=== PATIENT | female | born 1980 | race Native Hawaiian/Other Pacific Islander ===

== ENCOUNTER 2020-11-14 22:09 | Emergency (ER) | payer BC ==
[~2020-11-14] VITALS: Ht 152 cm; Wt 72.0 kg
[2020-11-14] MEDS ORDERED: MECLIZINE 25 MG (ANTIVERT) TAB PO ONE (23:00)
--- NOTE | 2020-11-14 23:03 | ED Headache ---
General Chief Complaint: Dizziness/Syncope Stated Complaint: HEADACHE Nursing Triage Note: PT REPORTS TO ED FOR DIZZINESS AND HEADACHE X'S TWO DAYS. DENIES HEAD INJURY. Nursing Sepsis Screen: No Definite Risk Source: patient, family Exam Limitations: language barrier (NATHANIEL HOFF) History of Present Illness Date Seen by Provider: Nov 14, 2020 Time Seen by Provider: 22:56 Initial Comments Hu is a 40 y/o female that presents to the ED with her son with 4 days of dizziness and the feeling of headache. The patient has a language barrier but her son is able to translate. Additionally, she can understand questions and commands in Frisian. Her dizziness is made worse with turning her head and bending over. She has a 5/10 pain associated with the headache. She has associ ated nausea without vomiting. Rest makes it better and moving makes it worse. Denies radiation of head pain. Denies the following: F/C, SOB, cough, chest pain, abdominal pain, weakness or sensory loss, head trauma, GI or symptoms at this time. LMP was in September, she does not remember the exact date and she is not sure if she could be . Denies PMH, PSH, Allergies, Vaccine hx, and medication use at this time. Timing/Duration: 1/2 hour Severity/Quality: mild Location: global Prior Headaches/Recent Trauma: no recent headache/trauma Modifying Factors: improves with movement Associated Symptoms: nausea/vomiting (w/o vomiting) (NATHANIEL HOFF) Allergies and Home Medications Allergies Coded Allergies: No Known Drug Allergies (Unverified , 11/14/20) Home Medications Meclizine HCl 25 Mg Tablet, 25 MG PO Q6H PRN for DIZZINESS Prescribed by: GOYO POLO on 11/14/20 1758 Patient Home Medication List Home Medication List Reviewed: Yes (GOYO APONTE MD) Review of Systems Review of Systems Constitutional: no symptoms reported Eyes: Denies Blurred Vision, Denies Drainage, Denies Photophobia Ears, Nose, Mouth, Throat: no symptoms reported Respiratory: no symptoms reported Cardiovascular: no symptoms reported Gastrointestinal: no symptoms reported Genitourinary: no symptoms reported Musculoskeletal: no symptoms reported Skin: no symptoms reported Psychiatric/Neurological: No Symptoms Reported (NATHANIEL HOFF) Past Rirdbio-Jdqivy-Mlxcox Hx Patient Social History Alcohol Use: Denies Use Smoking Status: Never a Smoker Recent Infectious Disease Expo: No Recent Hopitalizations: No (NATHANIEL HOFF) Seasonal Allergies Seasonal Allergies: No (NATHANIEL HOFF) Physical Exam Vital Signs Vital Signs - First Documented 11/14/20 22:20 Temp 35.4 Pulse 74 Resp 18 B/P (MAP) 127/77 (94) Pulse Ox 99 O2 Delivery Room Air (GOYO APONTE MD) Vital Signs Capillary Refill : Less Than 3 Seconds (NATHANIEL HOFF) Height, Weight, BMI Height: '" Weight: lbs. oz. kg; 31.00 BMI Method: General Appearance: WD/WN, no apparent distress HEENT: PERRL/EOMI Neck: non-tender, full range of motion Cardiovascular: normal peripheral pulses, regular rate, rhythm Respiratory: chest non-tender, normal breath sounds, no respiratory distress, no accessory muscle use Gastrointestinal: normal bowel sounds, non tender, soft, no organomegaly Back: normal inspection, no vertebral tenderness Extremities: normal range of motion, non-tender, no pedal edema (minimal swelling noted over left dorsum of foot. Non-tender. ), no calf tenderness Psychiatric: alert, oriented x 3 Crainal Nerves: normal hearing, normal speech, PERRL Coordination/Gait: normal finger to nose Motor/Sensory: no motor deficit, no sensory deficit Skin: normal color, warm/dry Lymphatic: no adenopathy Comments shaun hallpike was (-) for nystagmus but was (+) for reproduction of symptoms. (NATHANIEL HOFF) Progress/Results/Core Measures Results/Orders My Orders Orders - GOYO APONTE MD Meclizine Tablet (Antivert Tablet) (11/14/20 23:00) Urine Bedside (11/14/20 22:50) (GOYO APONTE MD) Medications Given in ED (GOYO APONTE MD) Vital Signs/I&O 11/14/20 11/14/20 22:20 23:48 Temp 35.4 36.0 Pulse 74 64 Resp 18 17 B/P (MAP) 127/77 (94) 124/77 (94) Pulse Ox 99 99 O2 Delivery Room Air Room Air (GOYO APONTE MD) Blood Pressure Mean: 94 Progress Progress Note : Time: 23:07 Progress Note After talking to patient and family about symptoms and with reproducibility of symptoms with Shaun-hallpike we talked to them about vertigo being the source. We performed vanda maneuver on patient. Will access patient again and collect urine sample. (NATHANIEL HOFF) Progress Note : Progress Note This patient was seen and examined by me personally and interviewed via her son. They speak P[place] and were comfortable with this arrangement. Patient's primary complaint is a vertiginous dizziness. She describes a spinning sensation when bending over getting up or turning her head to the left. This was disrupting her work causing her to leave work. She has had symptoms for couple of days. She had a positive [place]-Hallpike to the left. No nystagmus was observed but symptoms were reproduced. We converted the Shaun-Hallpike and to an Vanda maneuver. This was moderately helpful in reducing her dizziness. She was also given meclizine and rested comfortably after that. Patient describes no recent illnesses. She had no focal deficits on exam. Headache was not a significant complaint at the time of my interview. Urine test was negative. (GOYO APONTE MD) Departure Impression Primary Impression: Vertigo Disposition: 01 HOME, SELF-CARE Condition: Improved Departure-Patient Inst. Decision time for Depature: 23:24 (GOYO APONTE MD) Referrals: NO,LOCAL PHYSICIAN (PCP/Family) Primary Care Physician Patient Instructions: Vertigo (a Type of Dizziness) (DC) Add. Discharge Instructions: If you have recurrence of dizziness, you may repeat the Vanda maneuver several times. Follow the instructions on the handout provided. Start with turning your head to the left. It may take several attempts before successful. For the dizziness you may take meclizine purchased [id number]. Follow package instructions. If symptoms worsen or are not improving, either return to your primary care provider or the emergency room for repeat evaluation. Call with questions or concerns. All discharge instructions reviewed with patient and/or family. Voiced understanding. Scripts Meclizine HCl (Meclizine HCl) 25 Mg Tablet 25 MG PO Q6H PRN for DIZZINESS, #20 TAB Prov: GOYO APONTE MD 11/14/20 Work/School Note: Work Release Form Date Seen in the Emergency Department: Nov 14, 2020 Return to Work: Nov 15, 2020 Other Restrictions Listed Below: May need to stop work and rest if dizzy. Restrictions: May need to leave work if dizziness is persistent making work unsafe. Medical Student Attestation and Attending Note: I have personally interviewed and examined this patient along with Nathaniel Hoff, MS 4. I have reviewed student documentation including history, physical, and assessments. I agree with the documentation except where otherwise noted. Exam: General: Alert, oriented, no acute distress, well developed HEENT: Normocephalic and atraumatic Heart: Regular rate and rhythm without murmur Lungs: Clear to auscultation bilaterally with normal effort Abdomen: Soft, nontender, nondistended, normal bowel sounds Neuropsych: Alert, oriented, no focal deficits, positive Shaun-Hallpike to the left Skin: Warm and dry without rashes (GOYO APONTE MD) NATHANIEL HOFF [facility] Nov 14, 2020 23:03 GOYO APONTE MD Nov 14, 2020 23:28
[2020-11-14] MEDS ORDERED: MECL-149 PO (23:28)
[2020-11-14 23:48] VITALS: BP 124/77
== END 2020-11-14 23:48 | disposition home or self-care (01) ==
LOC: ER 22:12
DX: R42 Dizziness and giddiness (principal)
CPT/HCPCS: 84703; 99283

== ENCOUNTER 2022-01-26 16:13 | Emergency (ER) | payer BC ==
[~2022-01-26] VITALS: Ht 149 cm; Wt 61.0 kg
[~2022-01-26 16:13] MED LIST: MECL-149 PO
[2022-01-26] MEDS ORDERED: NS IV 1000 ML 1,000 ML IV STA (17:04)
--- NOTE | 2022-01-26 17:07 | ED General ---
General Chief Complaint: Cough/Cold/Flu Symptoms Stated Complaint: DIZZY/VOMITING/BODYACHES/LOSS OF TASTE Source of Information: Patient, Family Exam Limitations: Language Barrier (NAMAN TAN) History of Present Illness Date Seen by Provider: January 26, 2022 Time Seen by Provider: 17:06 Initial Comments Patient is a 41-year-old female presents ED with dizziness and vomiting. Dizziness has been intermittently over the past year. She states she was seen here in the ER and was diagnosed with vertigo. She gets these episodes to where she gets dizzy especially with standing or moving. Resolves when she lays down. Had an episode around 4:00 yesterday morning and vomited. Similar episode today around 12. No fever, chest pain, cough, headache, visual loss, unilateral muscle weakness or sensory changes, blurry vision, neck pain, cough, diarrhea. No vomiting today. Patient states she has had some intermittent right sided abdominal pain for a few months with intermittent heart palpitations as well. No known cardiac history, history of COPD or asthma. Has not followed up with her primary care physician since this visit. (NAMAN TAN) Allergies and Home Medications Allergies Coded Allergies: No Known Drug Allergies (Unverified , 11/14/20) Patient Home Medication List Home Medication List Reviewed: Yes (NAAMN TAN) Cephalexin (Cephalexin) 500 Mg Tablet, 500 MG PO BID Prescribed by: FUNMI BECK on 01/26/221836 Meclizine HCl (Meclizine HCl) 25 Mg Tablet, 25 MG PO Q6H PRN for DIZZINESS Prescribed by: GOYO POLO on 11/14/208 Meclizine HCl (Meclizine HCl) 25 Mg Tablet, 25 MG PO Q6H Prescribed by: FUNMI BECK on 01/26/22 183 Review of Systems Review of Systems Constitutional: No chills, No diaphoresis EENTM: No double vision, No vision loss, No mouth pain, No mouth swelling, No throat swelling Respiratory: No cough, No short of breath, No wheezing Gastrointestinal: No abdominal pain, No diarrhea, No nausea, No vomiting Genitourinary: No dysuria, No frequency, No hematuria, No hesitancy Skin: No change in color, No change in hair/nails Psychiatric/Neurological: Denies Headache, Denies Numbness, Denies Paresthesia, Denies Weakness; Other (Dizziness) (NAMAN TAN) All Other Systems Reviewed Negative Unless Noted: Yes (NAMAN TAN) Past Yzshuuz-Pdzdta-Klszlg Hx Seasonal Allergies Seasonal Allergies: No (NAMAN TAN) Physical Exam Vital Signs Vital Signs - First Documented 01/26/22 16:52 Temp 36.4 Pulse 68 Resp 18 B/P (MAP) 126/93 (104) Pulse Ox 97 O2 Delivery Room Air (MADI,FALLON K DO) Vital Signs Capillary Refill : (NAMAN TAN) Height, Weight, BMI Height: '" Weight: lbs. oz. kg; 31.00 BMI Method: General Appearance: No Apparent Distress, WD/WN Eyes: Bilateral Eye Normal Inspection, Bilateral Eye PERRL, Bilateral Eye EOMI, Bilateral Eye Abnormal EOM HEENT: PERRL/EOMI, TMs Normal, Normal ENT Inspection, Pharynx Normal Neck: Full Range of Motion, Normal Inspection, Non Tender Respiratory: Chest Non Tender, Lungs Clear, Normal Breath Sounds, No Accessory Muscle Use Cardiovascular: Regular Rate, Rhythm, No Edema, No Gallop, No JVD Gastrointestinal: Normal Bowel Sounds, No Organomegaly, No Pulsatile Mass Back: Normal Inspection, No CVA Tenderness, No Vertebral Tenderness Extremity: Normal Capillary Refill, Normal Inspection, Normal Range of Motion, Non Tender Skin: Normal Color, Warm/Dry (NAMAN TAN) Progress/Results/Core Measures Suspected Sepsis SIRS Temperature: Pulse: Respiratory Rate: Laboratory Tests 01/26/22 17:20: White Blood Count 8.7 Blood Pressure / Mean: Laboratory Tests 01/26/22 17:20: Creatinine 0.63, Platelet Count 292, Total Bilirubin 0.8 (NAMAN TAN) Results/Orders Lab Results Laboratory Tests Test 01/26/22 16:17 01/26/22 17:13 01/26/22 17:15 01/26/22 17:20 Range/Units Lab Scanned Report Referred Lab Report [id number] Urine Color YELLOW Urine Clarity TURBID Urine pH 6.0 5-9 Urine Specific [place] >=1.030 1.016-1.022 Urine Protein 3+ H NEGATIVE Urine Glucose (UA) TRACE H NEGATIVE Urine Ketones TRACE H NEGATIVE Urine Nitrite NEGATIVE NEGATIVE Urine Bilirubin 1+ H NEGATIVE Urine Urobilinogen 2.0 < = 1.0 MG/DL Urine Leukocyte Esterase 2+ H NEGATIVE Urine RBC (Auto) 3+ H NEGATIVE Urine RBC 5-10 H /HPF Urine WBC >100 H /HPF Urine Squamous Epithelial Cells 2-5 /HPF Urine Crystals NONE /LPF Urine Bacteria FEW H /HPF Urine Casts NONE /LPF Urine Mucus NEGATIVE /LPF Urine Culture Indicated YES Urine Test NEGATIVE NEGATIVE Influenza Type A (RT-PCR) Not Detected Not Detecte Influenza Type B (RT-PCR) Not Detected Not Detecte SARS-CoV-2 RNA (RT-PCR) Not Detected Not Detecte White Blood Count 8.7 4.3-11.0 10^3/uL Red Blood Count 5.06 3.80-5.11 10^6/uL Hemoglobin 14.8 11.5-16.0 g/dL Hematocrit 44 35-52 % Mean Corpuscular Volume 87 80-99 fL Mean Corpuscular Hemoglobin 29 25-34 pg Mean Corpuscular Hemoglobin Concent 34 32-36 g/dL Red Cell Distribution Width 11.8 10.0-14.5 % Platelet Count 292 130-400 10^3/uL Mean Platelet Volume 9.8 9.0-12.2 fL Immature Granulocyte % (Auto) 0 % Neutrophils (%) (Auto) 57 42-75 % Lymphocytes (%) (Auto) 28 12-44 % Monocytes (%) (Auto) 5 0-12 % Eosinophils (%) (Auto) 9 0-10 % Basophils (%) (Auto) 1 0-10 % Neutrophils # (Auto) 5.0 1.8-7.8 10^3/uL Lymphocytes # (Auto) 2.4 1.0-4.0 10^3/uL Monocytes # (Auto) 0.5 0.0-1.0 10^3/uL Eosinophils # (Auto) 0.8 H 0.0-0.3 10^3/uL Basophils # (Auto) 0.1 0.0-0.1 10^3/uL Immature Granulocyte # (Auto) 0.0 0.0-0.1 10^3/uL Sodium Level 139 135-145 MMOL/L Potassium Level 3.1 L 3.6-5.0 MMOL/L Chloride Level 103 98-107 MMOL/L Carbon Dioxide Level 24 21-32 MMOL/L Anion Gap 12 5-14 MMOL/L Blood Urea Nitrogen 10 7-18 MG/DL Creatinine 0.63 0.60-1.30 MG/DL Estimat Glomerular Filtration Rate 114 BUN/Creatinine Ratio 16 Glucose Level 104 70-105 MG/DL Calcium Level 8.9 8.5-10.1 MG/DL Corrected Calcium 8.7 8.5-10.1 MG/DL Magnesium Level 1.9 1.6-2.4 MG/DL Total Bilirubin 0.8 0.1-1.0 MG/DL Aspartate Amino Transf (AST/SGOT) 18 5-34 U/L Alanine Aminotransferase (ALT/SGPT) 19 0-55 U/L Alkaline Phosphatase 86 40-136 U/L Total Protein 8.2 6.4-8.2 GM/DL Albumin 4.2 3.2-4.5 GM/DL (FALLON BARRAZA DO) Micro Results Microbiology 01/26/22 Urine Culture - Final, Complete See Comments (FALLON BARRAZA DO) Vital Signs/I&O 01/26/22 01/26/22 16:52 18:41 Temp 36.4 36.4 Pulse 68 83 Resp 18 18 B/P (MAP) 126/93 (104) 132/91 Pulse Ox 97 97 O2 Delivery Room Air Room Air (FALLON BARRAZA DO) Vital Signs/I&O Capillary Refill : (NAMAN TAN) Departure Communication (PCP) No appreciation of nystagmus. No headache. No meningeal signs. Afebrile. Stable lab work. Was given a liter of fluid and meclizine with improvement of her dizziness. Dizziness has been intermittently over the past year states she gets episodes where she has dizziness with walking. Patient was able to ambulate and walk here in the ED without antalgic gait. Patient neuro exam unremarkable. She does have UTI was given Rocephin. Will discharge with Keflex and meclizine. Patient was requesting a work note for yesterday as well as today. States I will provide a work note for today and for tomorrow. She needs a follow-up outpatient for this continuous dizziness. No neurological red flag findings. Patient was laughing and playing on her phone without any issues. (NAMAN TAN) Impression Primary Impression: UTI (urinary tract infection) Additional Impression: Dizziness Disposition: 01 HOME, SELF-CARE Condition: Stable Departure-Patient Inst. Decision time for Depature: 18:34 (NAMAN TAN) Referrals: [facility],LOCAL PHYSICIAN (PCP) Primary Care Physician Patient Instructions: Urinary Tract Infection, Adult ED Scripts Meclizine HCl (Meclizine HCl) 25 Mg Tablet 25 MG PO Q6H, #12 TAB Prov: NAMAN TAN 01/26/22 Cephalexin (Cephalexin) 500 Mg Tablet 500 MG PO BID for 7 Days, #14 TAB Prov: NAMAN TAN 01/26/22 Work/School Note: Work Release Form Date Seen in the Emergency Department: January 26, 2022 Return to Work: January 28, 2022 ATTENDING PHYSICIAN NOTE: I WAS PHYSICALLY PRESENT ER PHYSICIAN, BUT I WAS NOT INVOLVED IN ANY DECISION MAKING OR ANY CARE OF THIS PATIENT. (FALLON BARRAZA DO) NAMAN TAN January 26, 2022 17:07 FALLON BARRAZA DO January 30, 2022 06:13
[2022-01-26] MEDS ORDERED: MECLIZINE 25 MG (ANTIVERT) TAB PO ONE (17:15)
[2022-01-26 17:31] LABS: CLARITY,URINE TURBID; COLOR,URINE YELLOW; GLUCOSE, URINE (UA) TRACE (NEGATIVE); KETONES,URINE TRACE (NEGATIVE); LEUKOCYTE ESTERASE ,URINE 2+ (NEGATIVE); NITRITE,URINE NEGATIVE (NEGATIVE); PROTEIN,URINE 3+ (NEGATIVE)
[2022-01-26 17:31] LABS: WHITE BLOOD COUNT 8.7 10^3/uL (4.3-11.0)
[2022-01-26 17:32] LABS: BASOPHILS # (AUTO) 0.1 10^3/uL (0.0-0.1); BASOPHILS % (AUTO) 1 % (0-10); EOSINOPHILS # (AUTO) 0.8 10^3/uL (0.0-0.3); EOSINOPHILS % (AUTO) 9 % (0-10); HEMATOCRIT 44 % (35-52); HEMOGLOBIN 14.8 g/dL (11.5-16.0); LYMPHOCYTES # (AUTO) 2.4 10^3/uL (1.0-4.0); LYMPHOCYTES % (AUTO) 28 % (12-44); MEAN CORPUSCULAR HEMOGLOBIN 29 pg (25-34); MEAN CORPUSCULAR HGB CONC 34 g/dL (32-36); MEAN CORPUSCULAR VOLUME 87 fL (80-99); MEAN PLATELET VOLUME 9.8 fL (9.0-12.2); MONOCYTES # (AUTO) 0.5 10^3/uL (0.0-1.0); MONOCYTES % (AUTO) 5 % (0-12); NEUTROPHILS % (AUTO) 57 % (42-75); PLATELET COUNT 292 10^3/uL (130-400)
[2022-01-26 17:39] LABS: ALBUMIN 4.2 GM/DL (3.2-4.5)
[2022-01-26 17:40] LABS: POTASSIUM 3.1 MMOL/L (3.6-5.0)
[2022-01-26 17:40] LABS: BACTERIA,URINE FEW /HPF; BILIRUBIN,URINE 1+ (NEGATIVE); WBC,URINE >100 /HPF
[2022-01-26 17:41] LABS: CALCIUM 8.9 MG/DL (8.5-10.1)
[2022-01-26 17:42] LABS: TOTAL PROTEIN 8.2 GM/DL (6.4-8.2)
[2022-01-26 17:44] LABS: BILIRUBIN,TOTAL 0.8 MG/DL (0.1-1.0)
[2022-01-26 17:46] LABS: CREATININE SERUM 0.63 MG/DL (0.60-1.30)
[2022-01-26 17:48] LABS: MAGNESIUM 1.9 MG/DL (1.6-2.4)
[2022-01-26] MEDS ORDERED: cefTRIAXone 1 GM PRE-MIX 50 ML IV STA (17:53)
[2022-01-26] MEDS ORDERED: CEPH500T PO (18:37)
[2022-01-26] MEDS ORDERED: MECL-149 PO (18:37)
[2022-01-26 18:41] VITALS: BP 132/91
== END 2022-01-26 18:41 | disposition home or self-care (01) ==
LOC: EDUNIT# 16:13 → ER 16:17
DX: R42 Dizziness and giddiness (principal); N39.0 Urinary tract infection, site not specified; Z20.822 Contact with and (suspected) exposure to COVID-19; Z32.02 Encounter for pregnancy test, result negative
CPT/HCPCS: 36415; 80053; 81000; 83735; 84703; 85025; 87088; 87636

== ENCOUNTER 2022-02-02 16:00 | Emergency (ER) | payer BC ==
[~2022-02-02] VITALS: Ht 149 cm; Wt 58.9 kg
[~2022-02-02 16:00] MED LIST changes: +CEPH500T PO
[2022-02-02] MEDS ORDERED: MECLIZINE 25 MG (ANTIVERT) TAB PO STA (16:42)
[2022-02-02] MEDS ORDERED: NS IV 1000 ML 1,000 ML IV STA (16:49)
[2022-02-02 16:53] LABS: BASOPHILS # (AUTO) 0.1 10^3/uL (0.0-0.1); BASOPHILS % (AUTO) 1 % (0-10); EOSINOPHILS # (AUTO) 1.1 10^3/uL (0.0-0.3); EOSINOPHILS % (AUTO) 14 % (0-10); HEMATOCRIT 37 % (35-52); LYMPHOCYTES # (AUTO) 2.1 10^3/uL (1.0-4.0); LYMPHOCYTES % (AUTO) 26 % (12-44); MEAN CORPUSCULAR HEMOGLOBIN 30 pg (25-34); MEAN CORPUSCULAR HGB CONC 35 g/dL (32-36); MEAN CORPUSCULAR VOLUME 86 fL (80-99); MEAN PLATELET VOLUME 9.8 fL (9.0-12.2); MONOCYTES # (AUTO) 0.5 10^3/uL (0.0-1.0); MONOCYTES % (AUTO) 6 % (0-12); NEUTROPHILS # (AUTO) 4.1 10^3/uL (1.8-7.8); NEUTROPHILS % (AUTO) 52 % (42-75); PLATELET COUNT 244 10^3/uL (130-400); WHITE BLOOD COUNT 7.9 10^3/uL (4.3-11.0)
--- NOTE | 2022-02-02 16:55 | ED General ---
General Chief Complaint: Dizziness/Syncope Stated Complaint: DIZZINESS Nursing Triage Note: PT PRESENTS TO ED VIA POV ACCOMPANIED BY SIG OTHER WITH COMPLAITNS OF DIZZINESS AND SOA WITH EXERTION X 1 YEAR. PT WAS SEEN IN ED LAST FRIDAY FOR SIMIALR COMPLAINT, PT REPROTS NO IMPROVEMENT. PT ALSO STATES SHE RECENTLY STARTED COUGHING AND HAVING RUNNY NOSE. Source of Information: Patient Exam Limitations: No Limitations (HANNAH BARTHOLOMEW MD) History of Present Illness Date Seen by Provider: February 02, 2022 Time Seen by Provider: 16:36 Initial Comments Here with report of dizziness gets been intermittent for the last 2 years and maybe little worse over the last 2 weeks. Seen last week for the same and had work-up done including viral panel and labs. She was started on meclizine and cephalexin for probable urinary tract infection. That seems to be normal for her despite low squame count her laboratory evaluation and microbiology. She has apparently done the Landy maneuver and states that its not really helping. She is [place] appears to understand Romansh well but does not speak it well. Significant other is helping with translation and they are comfortable with. Denies nausea or vomiting. Does have sinus congestion and pain now though with this cold that she has been having. States that she does have nasal congestion and mild sore throat with this cough. Shortness of air seems to be related to nasal congestion. Dizziness has been fdc and ongoing. It report did not had any imaging for this thus far. Reports daily dizzy episodes. Timing/Duration: Other (2 years but getting worse over 2 weeks) Severity: Moderate (HANNAH BARTHOLOMEW MD) Allergies and Home Medications Allergies Coded Allergies: No Known Drug Allergies (Unverified , 11/14/20) Patient Home Medication List Home Medication List Reviewed: Yes (NAMAN TAN) Amoxicillin/Potassium Clav (Amox Tr-K Clv 875-125 mg Tab) 875 Mg-125 Mg Tablet, 1 EACH PO BID Prescribed by: FUNMI BECK on 02/02/221925 Cephalexin (Cephalexin) 500 Mg Tablet, 500 MG PO BID Prescribed by: FUNMI BECK on 01/26/221836 Meclizine HCl (Meclizine HCl) 25 Mg Tablet, 25 MG PO Q6H PRN for DIZZINESS Prescribed by: GOYO POLO on 11/14/20 2328 Meclizine HCl (Meclizine HCl) 25 Mg Tablet, 25 MG PO Q6H Prescribed by: FUNMI BECK on 01/26/22 1837 Review of Systems Review of Systems Constitutional: No chills, No diaphoresis, No malaise, No weakness EENTM: nose congestion, other (loss of voice, sinus pressure); No blurred vision, No double vision, No throat pain Respiratory: No dyspnea on exertion Cardiovascular: No chest pain, No edema Gastrointestinal: No abdominal pain, No diarrhea, No nausea, No vomiting Musculoskeletal: No back pain, No joint pain Skin: No change in color Psychiatric/Neurological: Headache, Other (dizziness) (NAMAN TAN) All Other Systems Reviewed Negative Unless Noted: Yes (NAMAN TAN) Past Wqpnaht-Wlhjeq-Diuvsl Hx Patient Social History Tobacco Use?: No Substance use?: No Alcohol Use?: No Pt feels they are or have been: No (HANNAH BARHTOLOMEW MD) Immunizations Up To Date First/Initial COVID19 Vaccinat: 11/2020 Second COVID19 Vaccination [place]eewee: 11/2020 Third COVID19 Vaccination Date: 11/2020 COVID19 Vaccine Grain Shoveler: KAYLIN (HANNAH BARTHOLOMEW MD) Seasonal Allergies Seasonal Allergies: No (HANNAH BARTHOLOMEW MD) Past Medical History Surgery/Hospitalization HX: C SECTION (HANNAH BARTHOLOMEW MD) Physical Exam Vital Signs Vital Signs - First Documented 02/02/22 16:15 Temp 37.4 Pulse 75 Resp 18 Pulse Ox 97 O2 Delivery Room Air (NAMAN TAN) Vital Signs Capillary Refill : Less Than 3 Seconds (HANNAH BARTHOLOMEW MD) Height, Weight, BMI Height: '" Weight: lbs. oz. kg; 26.00 BMI Method: (HANNAH BARTHOLOMEW MD) General Appearance: No Apparent Distress, WD/WN Eyes: Bilateral Eye Normal Inspection, Bilateral Eye PERRL, Bilateral Eye EOMI HEENT: PERRL/EOMI, TMs Normal, Other (Bilateral maxillary and frontal sinus tenderness) Neck: Full Range of Motion, Normal Inspection, Non Tender, Supple Respiratory: Chest Non Tender, Lungs Clear, Normal Breath Sounds, No Accessory Muscle Use, No Respiratory Distress Cardiovascular: Regular Rate, Rhythm, No Edema, No Gallop, No JVD, No Murmur Gastrointestinal: Normal Bowel Sounds, No Organomegaly, No Pulsatile Mass Back: Normal Inspection, No CVA Tenderness Extremity: Normal Capillary Refill, Normal Inspection, Normal Range of Motion, Non Tender (NAMAN TAN) Progress/Results/Core Measures Suspected Sepsis SIRS Temperature: Pulse: 75 Respiratory Rate: 18 Laboratory Tests 02/02/22 16:45: White Blood Count 7.9 Blood Pressure / Mean: Laboratory Tests 02/02/22 16:45: Creatinine 0.59L, Platelet Count 244, Total Bilirubin 0.4 (HANNAH BARTHOLOMEW MD) Results/Orders Lab Results Laboratory Tests Test 02/02/22 16:45 02/02/22 17:03 Range/Units White Blood Count 7.9 4.3-11.0 10^3/uL Red Blood Count 4.37 3.80-5.11 10^6/uL Hemoglobin 13.0 11.5-16.0 g/dL Hematocrit 37 35-52 % Mean Corpuscular Volume 86 80-99 fL Mean Corpuscular Hemoglobin 30 25-34 pg Mean Corpuscular Hemoglobin Concent 35 32-36 g/dL Red Cell Distribution Width 12.0 10.0-14.5 % Platelet Count 244 130-400 10^3/uL Mean Platelet Volume 9.8 9.0-12.2 fL Immature Granulocyte % (Auto) 0 % Neutrophils (%) (Auto) 52 42-75 % Lymphocytes (%) (Auto) 26 12-44 % Monocytes (%) (Auto) 6 0-12 % Eosinophils (%) (Auto) 14 H 0-10 % Basophils (%) (Auto) 1 0-10 % Neutrophils # (Auto) 4.1 1.8-7.8 10^3/uL Lymphocytes # (Auto) 2.1 1.0-4.0 10^3/uL Monocytes # (Auto) 0.5 0.0-1.0 10^3/uL Eosinophils # (Auto) 1.1 H 0.0-0.3 10^3/uL Basophils # (Auto) 0.1 0.0-0.1 10^3/uL Immature Granulocyte # (Auto) 0.0 0.0-0.1 10^3/uL Neutrophils % (Manual) 53 % Lymphocytes % (Manual) 30 % Monocytes % (Manual) 2 % Eosinophils % (Manual) 15 % Blood Morphology Comment NORMAL Sodium Level 140 135-145 MMOL/L Potassium Level 3.4 L 3.6-5.0 MMOL/L Chloride Level 106 98-107 MMOL/L Carbon Dioxide Level 24 21-32 MMOL/L Anion Gap 10 5-14 MMOL/L Blood Urea Nitrogen 9 7-18 MG/DL Creatinine 0.59 L 0.60-1.30 MG/DL Estimat Glomerular Filtration Rate 115 BUN/Creatinine Ratio 15 Glucose Level 103 70-105 MG/DL Calcium Level 8.9 8.5-10.1 MG/DL Corrected Calcium 9.3 8.5-10.1 MG/DL Total Bilirubin 0.4 0.1-1.0 MG/DL Aspartate Amino Transf (AST/SGOT) 15 5-34 U/L Alanine Aminotransferase (ALT/SGPT) 17 0-55 U/L Alkaline Phosphatase 78 40-136 U/L Total Protein 6.5 6.4-8.2 GM/DL Albumin 3.5 3.2-4.5 GM/DL Urine Test NEGATIVE NEGATIVE (NAMAN TAN) My Orders Orders - NAMAN TAN Urine Bedside (02/02/22 18:26) Hcg,Qualitative Urine (02/02/22 18:31) (NAMAN TAN) Medications Given in ED Current Medications Medications Dose Ordered Sig/Shin Route Start Time Stop Time Status Last Admin Dose Admin Dexamethasone Sodium Phosphate 10 mg ONCE ONCE IV 02/02/22 16:45 02/02/22 16:46 DC 02/02/22 17:01 10 MG (NAMAN TAN) Vital Signs/I&O 02/02/22 16:15 Temp 37.4 Pulse 75 Resp 18 B/P (MAP) Pulse Ox 97 O2 Delivery Room Air (NAMAN TAN) Vital Signs/I&O Capillary Refill : Less Than 3 Seconds (HANNAH BARTHOLOMEW MD) Diagnostic Imaging Diagonstic Imaging: CT Plain Films/CT/US/NM/MRI: head Comments [facility] [place], [place] NAME: BIN TAYLOR [facility] REC#: [id number] PT STATUS: REG ER : 1980 PHYSICIAN: HANNAH BARTHOLOMEW MD ADMIT DATE: 02/02/22/ER Signed Date of Exam:02/02/22 CT HEAD WO PROCEDURE: CT head without contrast. TECHNIQUE: Multiple contiguous axial images were obtained through the brain without the use of intravenous contrast. Auto Exposure Controls were utilized during the CT exam to meet ALARA standards for radiation dose reduction. DATE: February 02, 2022. COMPARISON: None. INDICATION: 41-year-old female, sinus pressure and pain. FINDINGS: The ventricles and cerebral spinal fluid spaces are of normal size and configuration for the patient's age. There is no mass effect or midline shift. There is no acute intracranial hemorrhage. There is no abnormal extra-axial fluid collection. There is mucosal thickening of the bilateral maxillary sinuses. There is no air-fluid level in the paranasal sinuses. There is nonspecific partial opacification in the ethmoidal air cells. The mastoid air cells and middle ears are well-aerated. IMPRESSION: 1. No identified acute intracranial abnormality. 2. Nonspecific opacification in the ethmoidal air cells. No findings to specifically suggest acute sinusitis. Dictated by: Dictated on workstation # [id number] Dict: 02/02/221903 Trans: 02/02/221916 [facility] [id number] Interpreted by: JENNIFER GUTHRIE MD Electronically signed by: JENNIFER GUTHRIE MD 02/02/221916 (HANNAH BARTHOLOMEW MD) Departure Communication (PCP) Took over care from Dr. Bartholomew pending CT head and sinus. She has been having sinus pressure concerning for potential sinus infection resulting of her headache dizziness and congestion. She did have some mucosal thickening of the maxillary sinus. Nonspecific opacification in the ethmoid sinus. Due to her current symptoms and complaints patient will be discharged with Augmentin. Recommend stop taking the Keflex. Her urine culture showed normal lalo. Recommend hydration. Jasj-fmx-nchwcmt medication may be used for the sinus pressure. She does have meclizine at home. She has had intermittent dizziness over the past year. She would likely benefit following up with ENT. Provided this and discharge instructions. Return precautions were discussed. No strokelike symptoms. Afebrile. No meningeal signs. CT scan the head otherwise unremarkable. (NAMAN TAN) Impression Primary Impression: Dizziness Additional Impression: Sinusitis Disposition: HOME, SELF-CARE Condition: Stable Departure-Patient Inst. Referrals: RUPALI LORD MD NO,LOCAL PHYSICIAN (PCP) Primary Care Physician Patient Instructions: Dizziness, Adult ED Scripts Amoxicillin/Potassium Clav (Amox Tr-K Clv 875-125 mg Tab) 875 Mg-125 Mg Tablet 1 EACH PO BID for 10 Days, #20 TAB Prov: NAMAN TAN 02/02/22 Work/School Note: Work Release Form Return to Work: February 05, 2022 HANNAH BARTHOLOMEW MD February 02, 2022 16:55 NAMAN TAN February 02, 2022 19:27
[2022-02-02 17:08] LABS: ALBUMIN 3.5 GM/DL (3.2-4.5); POTASSIUM 3.4 MMOL/L (3.6-5.0)
[2022-02-02 17:09] LABS: CALCIUM 8.9 MG/DL (8.5-10.1)
[2022-02-02 17:11] LABS: TOTAL PROTEIN 6.5 GM/DL (6.4-8.2)
[2022-02-02 17:12] LABS: BILIRUBIN,TOTAL 0.4 MG/DL (0.1-1.0)
[2022-02-02 17:14] LABS: CREATININE SERUM 0.59 MG/DL (0.60-1.30)
[2022-02-02 17:27] LABS: EOSINOPHILS % (MANUAL) 15 %; LYMPHOCYTES % (MANUAL) 30 %; MONOCYTES % (MANUAL) 2 %; NEUTROPHILS % (MANUAL) 53 %; RBC MORPH NORMAL
--- NOTE | 2022-02-02 19:12 | Diagnostic Imaging Report ---
PROCEDURE: CT head without contrast. TECHNIQUE: Multiple contiguous axial images were obtained through the brain without the use of intravenous contrast. Auto Exposure Controls were utilized during the CT exam to meet ALARA standards for radiation dose reduction. DATE: February 02, 2022. COMPARISON: None. INDICATION: 41-year-old female, sinus pressure and pain. FINDINGS: The ventricles and cerebral spinal fluid spaces are of normal size and configuration for the patient's age. There is no mass effect or midline shift. There is no acute intracranial hemorrhage. There is no abnormal extra-axial fluid collection. There is mucosal thickening of the bilateral maxillary sinuses. There is no air-fluid level in the paranasal sinuses. There is nonspecific partial opacification in the ethmoidal air cells. The mastoid air cells and middle ears are well-aerated. IMPRESSION: 1. No identified acute intracranial abnormality. 2. Nonspecific opacification in the ethmoidal air cells. No findings to specifically suggest acute sinusitis. Dictated by: Dictated on workstation # [id number]
[2022-02-02] MEDS ORDERED: AMOX1TAB12 PO (19:26)
== END 2022-02-02 19:42 | disposition home or self-care (01) ==
LOC: EDUNIT# 16:00 → ER 16:01
DX: R42 Dizziness and giddiness (principal); J32.9 Chronic sinusitis, unspecified; Z32.02 Encounter for pregnancy test, result negative
CPT/HCPCS: 36415; 70450; 80053; 84703; 85007; 85027

== ENCOUNTER 2022-07-15 17:01 | Emergency (ER) | payer BC ==
[~2022-07-15] VITALS: Ht 152 cm; Wt 61.1 kg
[~2022-07-15 17:01] MED LIST changes: +AMOX1TAB12 PO
[2022-07-15] MEDS ORDERED: LACTATED RINGERS 1,000 ML IV ONE (18:15)
[2022-07-15 18:20] LABS: ALBUMIN 4.1 GM/DL (3.2-4.5)
[2022-07-15 18:21] LABS: POTASSIUM 3.2 MMOL/L (3.6-5.0)
[2022-07-15 18:22] LABS: CALCIUM 8.9 MG/DL (8.5-10.1)
[2022-07-15 18:23] LABS: TOTAL PROTEIN 7.9 GM/DL (6.4-8.2)
[2022-07-15 18:25] LABS: BASOPHILS # (AUTO) 0.1 10^3/uL (0.0-0.1); BASOPHILS % (AUTO) 1 % (0-10); BILIRUBIN,TOTAL 0.8 MG/DL (0.1-1.0); EOSINOPHILS # (AUTO) 0.3 10^3/uL (0.0-0.3); EOSINOPHILS % (AUTO) 3 % (0-10); HEMATOCRIT 44 % (35-52); HEMOGLOBIN 15.2 g/dL (11.5-16.0); LYMPHOCYTES # (AUTO) 1.7 10^3/uL (1.0-4.0); LYMPHOCYTES % (AUTO) 17 % (12-44); MEAN CORPUSCULAR HEMOGLOBIN 29 pg (25-34); MEAN CORPUSCULAR HGB CONC 35 g/dL (32-36); MEAN CORPUSCULAR VOLUME 84 fL (80-99); MEAN PLATELET VOLUME 10.3 fL (9.0-12.2); MONOCYTES # (AUTO) 0.5 10^3/uL (0.0-1.0); MONOCYTES % (AUTO) 5 % (0-12); NEUTROPHILS # (AUTO) 7.2 10^3/uL (1.8-7.8); NEUTROPHILS % (AUTO) 74 % (42-75); PLATELET COUNT 305 10^3/uL (130-400); WHITE BLOOD COUNT 9.8 10^3/uL (4.3-11.0)
[2022-07-15 18:27] LABS: CREATININE SERUM 0.63 MG/DL (0.60-1.30)
[2022-07-15 18:29] LABS: MAGNESIUM 1.8 MG/DL (1.6-2.4)
[2022-07-15 18:31] LABS: BILIRUBIN,URINE NEGATIVE (NEGATIVE); CLARITY,URINE CLOUDY; COLOR,URINE YELLOW; GLUCOSE, URINE (UA) NEGATIVE (NEGATIVE); KETONES,URINE NEGATIVE (NEGATIVE); LEUKOCYTE ESTERASE ,URINE 2+ (NEGATIVE); NITRITE,URINE NEGATIVE (NEGATIVE); PH,URINE 6.5 (5-9); PROTEIN,URINE 3+ (NEGATIVE)
[2022-07-15 18:37] LABS: CREATINE KINASE MB 1.5 NG/ML (<6.6)
[2022-07-15 18:42] LABS: BACTERIA,URINE NEGATIVE /HPF; SQUAMOUS EPITHELIAL CELL,UR 0-2 /HPF; WBC,URINE >100 /HPF
--- NOTE | 2022-07-15 18:45 | ED Neurological Problem ---
General Chief Complaint: Neurological Problems Stated Complaint: HEADACHE Nursing Triage Note: ARRIVED VIA AMB TO ROOM 06. STATES SHE HAS HAD A HEADACHE SINCE YESTERDAY AND HAD X2 SEIZURES THIS AM. Source: old records, spouse ( IS INDUSTRIAL PSYCHOLOGY TEACHER AND GIVES ALL INFORMATION) Exam Limitations: language barrier (PT DOES NOT SPEAK FRENCH) History of Present Illness Date Seen by Provider: Jul 15, 2022 Time Seen by Provider: 18:00 Initial Comments PT ARRIVES VIA POV FROM HOME WITH AND CHILD STATES SHE HAD 2 SEIZURES THIS MORNING--ONE AT 0500 AND ANOTHER ONE AT 0900 BOTH OF THESE OCCURRED WHILE SHE WAS SLEEPING, AND WITNESSED IN THEM HE STATES THAT BOTH OF THEM LASTED A COUPLE OF MINUTES--LESS THAN 5 MINUTES STATES SHE STARTED HAVING SEIZURES IN DECEMBER OF THIS YEAR, AND WAS STARTED ON UNKNOWN SEIZURE MEDICATION HERE IN ER, BUT SHE RAN OUT A COUPLE OF MONTHS AGO HE STATES SHE DID NOT HAVE SEIZURES WHEN SHE WAS TAKING THE MEDICATION, BUT STARTED HAVING THEM AGAIN AFTER SHE RAN OUT OF THE MEDICATION HE STATES SHE HAS 2-3 SEIZURES A WEEK, AND THEY ALWAYS HAPPEN WHEN SHE IS SLEEPING. DESCRIBES POST ICTAL SYMPTOMS OF CONFUSION, NO RECOLLECTION OF EVENT AND HEADACHE AFTER THESE EPISODES HE STATES SHE DOES NOT HAVE A DR, HAS NEVER FOLLOWED UP WITH ANYONE AFTER PRIOR ER VISITS HE STATES SHE HAS BEEN HAVING HEADACHES FOR THE LAST COUPLE OF DAYS, ( ALSO AN ONGOING PROBLEM FOR A COUPLE OF YEARS) --HEADACHE IS IN BOTH TEMPLES AND ABOVE EACH EYEBROW. SHE HAD NAUSEA AND VOMITING YESTERDAY--VOMITED UNKNOWN NUMBER OF TIMES--THIS IS ALSO AN ONGOING PROBLEM FOR A COUPLE OF YEARS, ALONG WITH ONGOING PROBLEM POSITIONAL DIZZINESS FOR A COUPLE OF YEARS. ON REVIEW OF PRIOR VISITS HERE, SHE HAS C/O DIZZINESS AND NAUSEA/VOMITING HER PRESENTING SYMPTOMS--NO MENTION MADE OF SEIZURES, AND PT WAS ONLY PRESCRIBED ANTIBIOTIC FOR UTI AND MECLIZINE. NO VISION CHANGES NO PARESTHESIAS OR MOTOR DEFICITS NO NECK PAIN OR STIFFNESS NO DIZZINESS AT THIS TIME NO FEVER OR COUGH / URI SYMPTOMS PCP: NONE Allergies and Home Medications Allergies Coded Allergies: No Known Drug Allergies (Unverified , 11/14/20) Patient Home Medication List Discontinued Medications Amoxicillin/Potassium Clav (Amox Tr-K Clv 875-125 mg Tab) 875 Mg-125 Mg Tablet, 1 EACH PO BID Discontinued Reason: No Longer Taking Prescribed by: FUNMI BECK on 02/02/221925 Last Action: Discontinued Cephalexin (Cephalexin) 500 Mg Tablet, 500 MG PO BID Discontinued Reason: No Longer Taking Prescribed by: FUNMI BECK on 01/26/221836 Last Action: Discontinued Meclizine HCl (Meclizine HCl) 25 Mg Tablet, 25 MG PO Q6H PRN for DIZZINESS Discontinued Reason: No Longer Taking Prescribed by: GOYO POLO on 11/14/202327 Last Action: Discontinued Meclizine HCl (Meclizine HCl) 25 Mg Tablet, 25 MG PO Q6H Discontinued Reason: No Longer Taking Prescribed by: FUNMI BECK on 01/26/221836 Last Action: Discontinued Review of Systems Review of Systems Constitutional: see HPI, dizziness, malaise Eyes: No Symptoms Reported Ears, Nose, Mouth, Throat: no symptoms reported Respiratory: no symptoms reported Cardiovascular: no symptoms reported Gastrointestinal: see HPI; No abdominal pain, No diarrhea; loss of appetite, nausea, vomiting Genitourinary: no symptoms reported : No LMP: Jun 06, 2022 Musculoskeletal: no symptoms reported Skin: no symptoms reported Psychiatric/Neurological: See HPI, Headache Endocrine: No Symptoms Reported Hematologic/Lymphatic: No Symptoms Reported Past Shjmsmo-Bbucya-[place] Hx Patient Social History Tobacco Use?: No Smoking Status: Never a Smoker Smokeless Tobacco Frequency: Never a User Use of E-Cig and/or Vaping Taz: Never a User Substance use?: No Alcohol Use?: No Immunizations Up To Date First/Initial COVID19 Vaccinat: 11/2020 Second COVID19 Vaccination Peewee: 11/2020 Third COVID19 Vaccination Date: 11/2020 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 ) Headaches /Migraines : No Reproductive Disorders: No Female Reproductive Disorders: Denies Genitourinary: Yes Bladder Infection Gastrointestinal: No Musculoskeletal: No Endocrine: No HEENT: No Cancer: No Psychosocial: No Integumentary: No Blood Disorders: No Physical Exam Vital Signs Vital Signs - First Documented 07/15/22 17:20 Temp 36.9 Pulse 70 Resp 16 B/P (MAP) 121/86 (98) Pulse Ox 98 O2 Delivery Room Air Capillary Refill : Less Than 3 Seconds Height, Weight, BMI Height: '" Weight: lbs. oz. kg; 26.00 BMI Method: General Appearance: WD/WN, no apparent distress, other (LAYING QUIETLY, DOES NOT APPEAR TO BE IN ANY DISCOMFORT OR DISTRESS) HEENT: PERRL/EOMI, normal ENT inspection, TMs normal, pharynx normal; No photophobia Neck: non-tender, full range of motion, supple, normal inspection Respiratory: normal breath sounds, no respiratory distress, no accessory muscle use Cardiovascular: normal peripheral pulses, regular rate, rhythm, no edema, no JVD, no murmur Gastrointestinal: normal bowel sounds, non tender, soft Back: no CVA tenderness Extremities: normal range of motion, non-tender, normal inspection, no pedal edema, no calf tenderness, normal capillary refill Neurologic/Psychiatric: 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 II-XII nml as tested, no motor/sensory deficits, alert, oriented x 3 (PER ), other (FLAT AFFECT) Motor/Sensory: no motor deficit, no sensory deficit Skin: normal color (DARK SKINNED), warm/dry Progress/Results/Core Measures Results/Orders Lab Results Laboratory Tests Test 07/15/22 17:35 07/15/22 18:20 07/15/22 18:22 Range/Units White Blood Count 9.8 4.3-11.0 10^3/uL Red Blood Count 5.22 H 3.80-5.11 10^6/uL Hemoglobin 15.2 11.5-16.0 g/dL Hematocrit 44 35-52 % Mean Corpuscular Volume 84 80-99 fL Mean Corpuscular Hemoglobin 29 25-34 pg Mean Corpuscular Hemoglobin Concent 35 32-36 g/dL Red Cell Distribution Width 12.0 10.0-14.5 % Platelet Count 305 130-400 10^3/uL Mean Platelet Volume 10.3 9.0-12.2 fL Immature Granulocyte % (Auto) 0 % Neutrophils (%) (Auto) 74 42-75 % Lymphocytes (%) (Auto) 17 12-44 % Monocytes (%) (Auto) 5 0-12 % Eosinophils (%) (Auto) 3 0-10 % Basophils (%) (Auto) 1 0-10 % Neutrophils # (Auto) 7.2 1.8-7.8 10^3/uL Lymphocytes # (Auto) 1.7 1.0-4.0 10^3/uL Monocytes # (Auto) 0.5 0.0-1.0 10^3/uL Eosinophils # (Auto) 0.3 0.0-0.3 10^3/uL Basophils # (Auto) 0.1 0.0-0.1 10^3/uL Immature Granulocyte # (Auto) 0.0 0.0-0.1 10^3/uL Erythrocyte Sedimentation Rate 10 0-20 MM/HR Sodium Level 140 135-145 MMOL/L Potassium Level 3.2 L 3.6-5.0 MMOL/L Chloride Level 107 98-107 MMOL/L Carbon Dioxide Level 25 21-32 MMOL/L Anion Gap 8 5-14 MMOL/L Blood Urea Nitrogen 7 7-18 MG/DL Creatinine 0.63 0.60-1.30 MG/DL Estimat Glomerular Filtration Rate 114 BUN/Creatinine Ratio 11 Glucose Level 97 70-105 MG/DL Calcium Level 8.9 8.5-10.1 MG/DL Corrected Calcium 8.8 8.5-10.1 MG/DL Magnesium Level 1.8 1.6-2.4 MG/DL Total Bilirubin 0.8 0.1-1.0 MG/DL Aspartate Amino Transf (AST/SGOT) 19 5-34 U/L Alanine Aminotransferase (ALT/SGPT) 16 0-55 U/L Alkaline Phosphatase 87 40-136 U/L Total Creatine Kinase 165 29-168 U/L Creatine Kinase MB 1.5 <6.6 NG/ML Myoglobin 66.0 10.0-92.0 NG/ML C-Reactive Protein High Sensitivity 0.21 0.00-0.50 MG/DL Total Protein 7.9 6.4-8.2 GM/DL Albumin 4.1 3.2-4.5 GM/DL TSH Jay Testing 1.01 0.35-4.94 UIU/ML Serum Test, Qualitative NEGATIVE NEGATIVE Influenza Type A (RT-PCR) Not Detected Not Detecte Influenza Type B (RT-PCR) Not Detected Not Detecte SARS-CoV-2 RNA (RT-PCR) Not Detected Not Detecte Urine Color YELLOW Urine Clarity CLOUDY Urine pH 6.5 5-9 Urine Specific Marlin 1.025 H 1.016-1.022 Urine Protein 3+ H NEGATIVE Urine Glucose (UA) NEGATIVE NEGATIVE Urine Ketones NEGATIVE NEGATIVE Urine Nitrite NEGATIVE NEGATIVE Urine Bilirubin NEGATIVE NEGATIVE Urine Urobilinogen 1.0 < = 1.0 MG/DL Urine Leukocyte Esterase 2+ H NEGATIVE Urine RBC (Auto) 3+ H NEGATIVE Urine RBC NONE /HPF Urine WBC >100 H /HPF Urine Squamous Epithelial Cells 0-2 /HPF Urine Renal Epithelial Cells NONE /HPF Urine Crystals NONE /LPF Urine Bacteria NEGATIVE /HPF Urine Casts NONE /LPF Urine Mucus LARGE H /LPF Urine Culture Indicated YES My Orders Orders - FALLON BARRAZA DO Ed Iv/Invasive Line Start (07/15/22 18:09) Monitor-Rhythm Ecg Trace Only (07/15/22 18:09) Ct Head Wo-R/O Stroke (07/15/22 18:09) Cbc With Automated Diff (07/15/22 18:09) Comprehensive Metabolic Panel (07/15/22 18:09) Creatine Kinase (07/15/22 18:09) Creatine Kinase Mb (07/15/22 18:09) Hs C Reactive Protein (07/15/22 18:09) Hcg,Qualitative Serum (07/15/22 18:09) Magnesium (07/15/22 18:09) Thyroid Analyzer (07/15/22 18:09) Ua Culture If Indicated (07/15/22 18:09) Erythrocyte Sedimentation Rate (07/15/22 18:09) Myoglobin Serum (07/15/22 18:09) Ed Iv/Invasive Line Start (07/15/22 18:09) Lactated Ringers (Lr 1000 Ml Iv Solution (07/15/22 18:15) Chest 1 View, Ap/Pa Only (07/15/22 18:09) Covid 19 Inhouse Test (07/15/22 18:09) Influenza A And B By Pcr (07/15/22 18:09) Isolation Central Supply Req (07/15/22 18:09) Urine Culture (07/15/22 18:22) Ceftriaxone 1 Gm Pre-Mix (Rocephin 1 Gm (07/15/22 19:00) Tick Panel With Lyme Eia (07/15/22 18:48) Ct Diandra Chest/Noang Abd-Pelv W (07/15/22 20:06) Iohexol Injection (Omnipaque 350 Mg/Ml 1 (07/15/22 20:30) Received Contrast (Hold Metformin- Contr (07/15/22 20:30) Ns (Ivpb) (Sodium Chloride 0.9% Ivpb Bag (07/15/22 20:30) Alcohol (07/15/22 22:00) Drug Screen Stat (Urine) (07/15/22 22:00) Ketorolac Injection (Toradol Injection) (07/15/22 22:15) Medications Given in ED Current Medications Medications Dose Ordered Sig/Shin Route Start Time Stop Time Status Last Admin Dose Admin Ceftriaxone Sodium/Dextrose 50 ml @ 100 mls/hr ONCE ONCE IV 07/15/22 19:00 07/15/22 19:29 DC 07/15/22 19:41 100 MLS/HR Iohexol 100 ml ONCE ONCE IV 07/15/22 20:30 07/15/22 20:31 DC 07/15/22 20:36 100 ML Ketorolac Tromethamine 30 mg ONCE ONCE IVP 07/15/22 22:15 07/15/22 22:16 07/15/22 22:09 30 MG Lactated Ringer's 1,000 ml @ 0 mls/hr Q0M ONCE IV 07/15/22 18:15 07/15/22 18:16 DC 07/15/22 18:19 1,000 MLS/HR Vital Signs/I&O 07/15/22 17:20 Temp 36.9 Pulse 70 Resp 16 B/P (MAP) 121/86 (98) Pulse Ox 98 O2 Delivery Room Air Blood Pressure Mean: 98 Progress Progress Note : Progress Note GIVEN: -IV FLUIDS -ROCEPHIN FOR UTI Diagnostic Imaging Comments CXR--PER RADIOLOGIST REPORT AT 1939 INDICATION: Weakness Portable AP view of the chest is obtained. There is no previous study available at this time for comparison. Heart size is at the upper limits of normal. Pulmonary vascularity and there is no evidence of overt pulmonary edema. Mild increased density is noted in the right perihilar region possibly related to mild edema or pneumonitis. No consolidation, pneumothorax or pleural fluid is seen. IMPRESSION: Mild right perihilar density may reflect mild edema or pneumonitis. In addition, the heart size is at the upper limits of normal without other acute abnormality. CT HEAD--PER RADIOLOGIST REPORT AT 2004 CT HEAD: CT images of the head were obtained. FINDINGS: Ventricles and sulci are within normal limits for size. There is no intracranial hemorrhage identified. There is no abnormal mass effect or shift of midline structures. IMPRESSION: Unremarkable CT of the head. Reviewed: Reviewed by Me Departure Impression Primary Impression: Seizures Additional Impressions: UTI (urinary tract infection) Chronic headaches CHRONIC NAUSEA/VOMITING Disposition: 01 HOME, SELF-CARE Condition: Stable Departure-Patient Inst. Decision time for Depature: 22:13 Referrals: [facility] [place] Patient Instructions: Headache, Adult ED, Seizures, Adult ED, Urinary Tract Infection, Adult (DC) Add. Discharge Instructions: HOME, REST LOTS OF CLEAR LIQUIDS--WATER, BROTH, JELLO, GATORADE, CLEAR JUICE BRATS DIET--BANANAS, RICE, APPLESAUCE, TOAST, SALTINES. NO DRIVING AT ANY TIME YOU MAY TAKE TYLENOL AND MOTRIN NEEDED FOR YOUR PAIN GO TO THE PHARMACY FIRST THING IN THE MORNING AND SUPERVISOR ELECTRONIC COILS YOUR PRESCRIPTIONS AND START TAKING THEM TOMORROW MORNING. FOLLOW UP WITH [facility] FOR FURTHER EVALUATION OF SEIZURES---CALL IN THE MORNING TO MAKE AN APPOINTMENT FOLLOW UP WITH [facility] TO ESTABLISH PRIMARY CARE, FOR FURTHER EVAULATION OF YOUR PROBLEMS, AND TO HAVE YOUR URINE RECHECKED--CALL IN THE MORNING TO MAKE AN APPOINTMENT CALL THE HOSPITAL SCHEDULING DEPARTMENT AT IN THE MORNING TO SCHEDULE AN OUTPATIENT MRI OF YOUR BRAIN. RETURN TO ER IF SYMPTOMS WORSEN All discharge instructions reviewed with patient and/or family. Voiced understanding. Scripts Nitrofurantoin Monohyd/M-Cryst (Macrobid 100 mg Capsule) 100 Mg Capsule 1 TAB PO BID, #20 CAP Prov: FALLON BARRAZA DO 07/15/22 Ondansetron (Ondansetron Odt) 8 Mg Tab.rapdis 8 MG SL Q4H PRN for NAUSEA/VOMITING, #14 TAB Prov: FALLON BARRAZA DO 07/15/22 Levetiracetam (Keppra) 500 Mg Tablet 500 MG PO BID, #60 TAB Prov: MADIFALLON K DO 07/15/22 FALLON BARRAZA DO Jul 15, 2022 18:45
[2022-07-15 18:47] LABS: ERYTHROCYTE SEDIMENTATION RATE 10 MM/HR (0-20)
[2022-07-15 18:50] LABS: TSH (THYROID ANALYZER) 1.01 UIU/ML (0.35-4.94)
[2022-07-15] MEDS ORDERED: cefTRIAXone 1 GM PRE-MIX 50 ML IV ONE (19:00)
--- NOTE | 2022-07-15 19:36 | Diagnostic Imaging Report ---
INDICATION: Weakness Portable AP view of the chest is obtained. There is no previous study available at this time for comparison. Heart size is at the upper limits of normal. Pulmonary vascularity and there is no evidence of overt pulmonary edema. Mild increased density is noted in the right perihilar region possibly related to mild edema or pneumonitis. No consolidation, pneumothorax or pleural fluid is seen. IMPRESSION: Mild right perihilar density may reflect mild edema or pneumonitis. In addition, the heart size is at the upper limits of normal without other acute abnormality. Dictated by: Dictated on workstation # [id number]
--- NOTE | 2022-07-15 19:46 | Diagnostic Imaging Report ---
PROCEDURE: CT head wo r/o stroke. TECHNIQUE: Multiple contiguous axial images were obtained through the brain without the use of intravenous contrast. Auto Exposure Controls were utilized during the CT exam to meet ALARA standards for radiation dose reduction. INDICATION: Neurologic deficit with headache and seizure CT HEAD: CT images of the head were obtained. FINDINGS: Ventricles and sulci are within normal limits for size. There is no intracranial hemorrhage identified. There is no abnormal mass effect or shift of midline structures. IMPRESSION: Unremarkable CT of the head. Dictated by: Dictated on workstation # [id number]
[2022-07-15] MEDS ORDERED: NS 100 ML (IVPB) BAG IV ONE (20:30)
[2022-07-15] MEDS ORDERED: IOHEXOL 350 MG/ML 100 ML (OMNIPAQUE 350) VIAL IV ONE (20:30)
[2022-07-15] MEDS ORDERED: HOLD METFORMIN - RECEIVED CONTRAST 20 ML VIAL IV SCH (20:30)
--- NOTE | 2022-07-15 21:09 | Diagnostic Imaging Report ---
INDICATION: Chest and abdominal pain with urinary tract infection. CTA chest, abdomen and pelvis Thin axial sections through the chest, abdomen and pelvis are obtained following intravenous contrast bolus. Multiplanar MIP images were reconstructed and reviewed. All CT scans use one or more of the following dose optimizing techniques: automated exposure control, MA and/or KvP adjustment based on patient size and exam type or iterative reconstruction. There is good opacification of the pulmonary arteries without intraluminal filling defect. There is no evidence of acute thoracic aortic abnormality. There is dilatation of left lower lobe pulmonary vein. No definite proximal stenosis is appreciated. The lungs appear clear without evidence of consolidation or mass. There is no significant pleural or pericardial fluid. There is no focal hepatic, gallbladder, pancreatic, adrenal gland or splenic abnormality. Kidneys are also unremarkable without evidence of free fluid in the abdomen or pelvis. No pathologically enlarged adenopathy is identified. There is no evidence of appendiceal inflammation. There is fluid within the endometrial canal possibly related to hormonal influence or menstrual cycle. Collection of fluid is also present in what appears to be the vagina, possibly within the vaginal wall, measuring 2.5 cm in diameter. IMPRESSION: No definite acute abnormality seen within the abdomen or pelvis although there is an approximately 2.5 cm smooth-walled fluid collection at the level of the vagina. There may also be endometrial fluid possibly related to outflow obstruction and clinical correlation is recommended. Pelvic ultrasonography may be of value. Otherwise, no acute abnormality is seen within the chest or abdomen. Dictated by: Dictated on workstation # [id number]
[2022-07-15] MEDS ORDERED: KETOROLAC 30 MG/ML VIAL IVP ONE (22:15)
[2022-07-15] MEDS ORDERED: ONDA8TAB13 SL (22:21)
[2022-07-15] MEDS ORDERED: NITR-65 PO (22:21)
[2022-07-15] MEDS ORDERED: LEVE500T99 PO (22:21)
[2022-07-15 22:41] LABS: AMPHETAMINE SCREEN, URINE NEGATIVE (NEGATIVE); BARBITURATE SCREEN URINE NEGATIVE (NEGATIVE); BENZODIAZEPINES SCREEN URINE NEGATIVE (NEGATIVE); CANNABINOID SCREEN, URINE NEGATIVE (NEGATIVE); COCAINE SCREEN URINE NEGATIVE (NEGATIVE); METHADONE STAT NEGATIVE (NEGATIVE); OPIATE SCREEN URINE NEGATIVE (NEGATIVE); OXYCODONE STAT NEGATIVE (NEGATIVE); PROPOXYPHENE STAT NEGATIVE (NEGATIVE); TRICYCLIC ANTIDEPRESSANTS SCRE NEGATIVE (NEGATIVE)
[2022-07-15 22:45] VITALS: BP 111/79
== END 2022-07-15 22:45 | disposition home or self-care (01) ==
LOC: EDUNIT# 17:01 → ER 17:03
DX: N39.0 Urinary tract infection, site not specified (principal); R51.9 Headache, unspecified; G89.29 Other chronic pain; R11.2 Nausea with vomiting, unspecified; R56.9 Unspecified convulsions; Z86.69 Personal history of other diseases of the nervous system and sense organs; Z91.14 Patient's other noncompliance with medication regimen; Z20.822 Contact with and (suspected) exposure to COVID-19
CPT/HCPCS: 70450; 71045; 71275; 74177; 80053; 80306; 81000; 82550; 82553; 83735; 83874; 84443; 84703; 85025; 85652; 86141; 86618; 86666 ×2; 86668; 86757 ×2; 87088; 87636; 93041; 99284; G0480; 36415; 80320

== ENCOUNTER → 2023-03-20 | Emergency (ER) | payer BC ==
[~2023-03-20] VITALS: Ht 157 cm; Wt 63.5 kg
[~2023-03-20] MED LIST changes: +KCL 20 MEQ TAB (K-DUR) PO ONE; +LEVE500T99 PO; +NITR-65 PO; +ONDA8TAB13 SL; +cefTRIAXone IV/IM 1,000 MG in NS (IVPB) 50 ML IV ONE
[2023-03-20 14:52] VITALS: BP 97/63
[2023-03-20 15:00] LABS: BASOPHILS # (AUTO) 0.1 10^3/uL (0.0-0.1); BASOPHILS % (AUTO) 1 % (0-10); EOSINOPHILS # (AUTO) 0.1 10^3/uL (0.0-0.3); EOSINOPHILS % (AUTO) 1 % (0-10); HEMATOCRIT 40 % (35-52); HEMOGLOBIN 13.6 g/dL (11.5-16.0); LYMPHOCYTES # (AUTO) 1.6 10^3/uL (1.0-4.0); LYMPHOCYTES % (AUTO) 21 % (12-44); MEAN CORPUSCULAR HEMOGLOBIN 29 pg (25-34); MEAN CORPUSCULAR HGB CONC 34 g/dL (32-36); MEAN CORPUSCULAR VOLUME 85 fL (80-99); MEAN PLATELET VOLUME 9.5 fL (9.0-12.2); MONOCYTES # (AUTO) 0.5 10^3/uL (0.0-1.0); MONOCYTES % (AUTO) 6 % (0-12); NEUTROPHILS # (AUTO) 5.3 10^3/uL (1.8-7.8); NEUTROPHILS % (AUTO) 70 % (42-75); PLATELET COUNT 318 10^3/uL (130-400); WHITE BLOOD COUNT 7.5 10^3/uL (4.3-11.0)
[2023-03-20 15:08] LABS: ALBUMIN 3.8 GM/DL (3.2-4.5); POTASSIUM 3.2 MMOL/L (3.6-5.0)
[2023-03-20 15:09] LABS: CALCIUM 8.5 MG/DL (8.5-10.1)
[2023-03-20 15:12] LABS: BILIRUBIN,TOTAL 0.6 MG/DL (0.1-1.0)
--- NOTE | 2023-03-20 15:12 | ED Neurological Problem ---
General Chief Complaint: Neurological Problems Stated Complaint: SEIZURE Nursing Triage Note: PATIENT IS BROUGHT TO ED VIA CC. EMS ON BLS. PER SPOUSE PATIENT HAD TWO SEIZURES THIS MORNING. LAST ONE LASTED ABOUT A MINUTE AROUND 1405. PATIENT HAS BEEN OFF HER MEDICATION FOR A YEAR DUE TO RUNNING OUT. Source: patient Exam Limitations: language barrier (YANY JONES APRN) History of Present Illness Date Seen by Provider: Mar 20, 2023 Time Seen by Provider: 14:52 Initial Comments 42-year-old female presents to the ER via EMS for reports of seizure. Patient speaks minimal Georgian, most of history obtained from EMS and . Seizures were witnessed by . He states that her whole body tightens up, her eyes rolled back in her head, and she blows out of her mouth. He states that she does not respond to him during the seizure. He states they last about a minute. He reports that she had 1 yesterday morning around 5 AM, and then 3 today. According to him, she first started having seizures about 1 year ago, he states that she was seen here and prescribed a medication for seizures. She ran out of the medication and did not follow-up. Patient's states that she has not had a seizure since running out of the medication. He denies any recent illness. States that patient is complaining of left shoulder and arm pain from her seizure. She is currently on her menstrual cycle. EMS did not witness the seizure, but they stated that she was postictal when they arrived. According to ED notes. Patient was seen in June 2022 for a seizure and started on Keppra at that time. She was supposed to follow-up with epilepsy clinic but did not. She was also supposed to follow-up with Dr. Burr to get established for primary care. Patient did not do this as well. No other previous ED notes indicate seizure activity. (YANY JONES APRN) Allergies and Home Medications Allergies Coded Allergies: No Known Drug Allergies (Unverified , 11/14/20) Patient Home Medication List Home Medication List Reviewed: Yes (YANY JONES APRN) Levetiracetam (Keppra) 500 Mg Tablet, 500 MG PO BID Prescribed by: FALLON BARRAZA on 07/15/221 Levetiracetam (Keppra) 500 Mg Tablet, 500 MG PO BID Prescribed by: Yany Jones on 03/20/23 1636 Nitrofurantoin Monohyd/M-Cryst (Macrobid 100 mg Capsule) 100 Mg Capsule, 1 TAB PO BID Prescribed by: FALLON BARRAZA on 07/15/222220 Nitrofurantoin Monohyd/M-Cryst (Macrobid 100 mg Capsule) 100 Mg Capsule, 1 TAB PO BID Prescribed by: Yany Jones on 03/20/23 1637 Ondansetron (Ondansetron Odt) 8 Mg Tab.rapdis, 8 MG SL Q4H PRN for NAUSEA/VOMITING Prescribed by: FALLON BARRAZA on 07/15/222220 Review of Systems Review of Systems Constitutional: see HPI (YANY JONES APRN) Past Jdqrsrl-Zcpmio-Pzdplu Hx Patient Social History Tobacco Use?: No Substance use?: No Alcohol Use?: No Pt feels they are or have been: Unable to obtain (YANY JONES APRN) Immunizations Up To Date First/Initial COVID19 Vaccinat: 11/2020 Second COVID19 Vaccination [place]: 11/2020 Third COVID19 Vaccination Date: 11/2020 (YANY JONES APRN) Seasonal Allergies Seasonal Allergies: No (YANY JONES APRN) Past Medical History Surgery/Hospitalization HX: MED. HX-EPILEPSY SURG. HX-C SECTION Surgeries: Yes Section Respiratory: No Cardiac: No Neurological: Yes (DIZZINESS; SEIZURES REPORTED BY , NO PRIOR MED DX. ) Headaches /Migraines Last Menstrual Period: Mar 20, 2023 Reproductive Disorders: No Female Reproductive Disorders: Denies Genitourinary: Yes Bladder Infection Gastrointestinal: No Musculoskeletal: No Endocrine: No HEENT: No Cancer: No Psychosocial: No Integumentary: No Blood Disorders: No (YANY JONES APRN) Physical Exam Vital Signs Vital Signs - First Documented 03/20/23 14:52 Temp 37.8 Pulse 67 Resp 18 B/P (MAP) 97/63 (74) Pulse Ox 94 O2 Delivery Room Air (GOYO APONTE MD) Vital Signs Capillary Refill : (YANY JONES APRN) Height, Weight, BMI Height: '" Weight: lbs. oz. kg; 25.00 BMI Method: General Appearance: WD/WN, no apparent distress HEENT: PERRL/EOMI, TMs normal Neck: supple, normal inspection Respiratory: lungs clear, normal breath sounds, no respiratory distress, no accessory muscle use Cardiovascular: regular rate, rhythm Gastrointestinal: normal bowel sounds Extremities: normal inspection, other (Limited range of motion due to pain of left shoulder, tenderness to palpation of the left shoulder. 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, alert, normal mood/affect, oriented x 3 Crainal Nerves: normal hearing, PERRL Skin: normal color, warm/dry (YANY JONES APRN) Progress/Results/Core Measures Results/Orders Lab Results Laboratory Tests Test 03/20/23 14:55 03/20/23 15:08 03/20/23 15:12 03/20/23 15:34 Range/Units White Blood Count 7.5 4.3-11.0 10^3/uL Red Blood Count 4.71 3.80-5.11 10^6/uL Hemoglobin 13.6 11.5-16.0 g/dL Hematocrit 40 35-52 % Mean Corpuscular Volume 85 80-99 fL Mean Corpuscular Hemoglobin 29 25-34 pg Mean Corpuscular Hemoglobin Concent 34 32-36 g/dL Red Cell Distribution Width 12.1 10.0-14.5 % Platelet Count 318 130-400 10^3/uL Mean Platelet Volume 9.5 9.0-12.2 fL Immature Granulocyte % (Auto) 0 % Neutrophils (%) (Auto) 70 42-75 % Lymphocytes (%) (Auto) 21 12-44 % Monocytes (%) (Auto) 6 0-12 % Eosinophils (%) (Auto) 1 0-10 % Basophils (%) (Auto) 1 0-10 % Neutrophils # (Auto) 5.3 1.8-7.8 10^3/uL Lymphocytes # (Auto) 1.6 1.0-4.0 10^3/uL Monocytes # (Auto) 0.5 0.0-1.0 10^3/uL Eosinophils # (Auto) 0.1 0.0-0.3 10^3/uL Basophils # (Auto) 0.1 0.0-0.1 10^3/uL Immature Granulocyte # (Auto) 0.0 0.0-0.1 10^3/uL Sodium Level 138 135-145 MMOL/L Potassium Level 3.2 L 3.6-5.0 MMOL/L Chloride Level 109 H 98-107 MMOL/L Carbon Dioxide Level 18 L 21-32 MMOL/L Anion Gap 11 5-14 MMOL/L Blood Urea Nitrogen 10 7-18 MG/DL Creatinine 0.71 0.60-1.30 MG/DL Estimat Glomerular Filtration Rate 108 BUN/Creatinine Ratio 14 Glucose Level 108 H 70-105 MG/DL Calcium Level 8.5 8.5-10.1 MG/DL Corrected Calcium 8.7 8.5-10.1 MG/DL Total Bilirubin 0.6 0.1-1.0 MG/DL Aspartate Amino Transf (AST/SGOT) 19 5-34 U/L Alanine Aminotransferase (ALT/SGPT) 25 0-55 U/L Alkaline Phosphatase 89 40-136 U/L Total Protein 7.0 6.4-8.2 GM/DL Albumin 3.8 3.2-4.5 GM/DL Glucometer 112 H 70-110 MG/DL Urine Color RED H Urine Clarity CLOUDY Urine pH 5.0 5-9 Urine Specific [place] >=1.030 1.016-1.022 Urine Protein 3+ H NEGATIVE Urine Glucose (UA) NEGATIVE NEGATIVE Urine Ketones TRACE H NEGATIVE Urine Nitrite POSITIVE H NEGATIVE Urine Bilirubin NEGATIVE NEGATIVE Urine Urobilinogen 1.0 < = 1.0 MG/DL Urine Leukocyte Esterase 2+ H NEGATIVE Urine RBC (Auto) 3+ H NEGATIVE Urine RBC TNTC H /HPF Urine WBC 50-100 H /HPF Urine Squamous Epithelial Cells 5-10 /HPF Urine Crystals NONE /LPF Urine Bacteria FEW H /HPF Urine Casts NONE /LPF Urine Mucus MODERATE H /LPF Urine Culture Indicated YES Urine Opiates Screen NEGATIVE NEGATIVE Urine Oxycodone Screen NEGATIVE NEGATIVE Urine Methadone Screen NEGATIVE NEGATIVE Urine Propoxyphene Screen NEGATIVE NEGATIVE Urine Barbiturates Screen NEGATIVE NEGATIVE Ur Tricyclic Antidepressants Screen NEGATIVE NEGATIVE Urine Phencyclidine Screen NEGATIVE NEGATIVE Urine Amphetamines Screen NEGATIVE NEGATIVE Urine Methamphetamines Screen NEGATIVE NEGATIVE Urine Benzodiazepines Screen NEGATIVE NEGATIVE Urine Cocaine Screen NEGATIVE NEGATIVE Urine Cannabinoids Screen NEGATIVE NEGATIVE Magnesium Level 1.8 1.6-2.4 MG/DL Test 03/20/23 15:48 Range/Units SARS-CoV-2 RNA (RT-PCR) Not Detected Not Detecte (GOYO AOPNTE MD) Medications Given in ED Current Medications Medications Dose Ordered Sig/Shin Route Start Time Stop Time Status Last Admin Dose Admin Ceftriaxone Sodium 1000 mg/ Sodium Chloride 50 ml @ 100 mls/hr ONCE ONCE IV 03/20/23 16:15 03/20/23 16:44 DC 03/20/23 16:28 100 MLS/HR Levetiracetam 500 mg ONCE ONCE PO 03/20/23 15:30 03/20/23 15:31 DC 03/20/23 16:16 500 MG Potassium Chloride 40 meq ONCE ONCE PO 03/20/23 15:30 03/20/23 15:31 DC 03/20/23 16:16 40 MEQ (GOYO APONTE MD) Vital Signs/I&O 03/20/23 14:52 Temp 37.8 Pulse 67 Resp 18 B/P (MAP) 97/63 (74) Pulse Ox 94 O2 Delivery Room Air (GOYO APONTE MD) Blood Pressure Mean: 74 FSBG Bedside Testing Finger Stick Blood Glucose: 112 Blood Glucose Action Taken: PROVIDER NOTIFIED. (YANY JONES APRN) Progress Progress Note : Progress Note Patient seen and evaluated, resting comfortably in bed, no acute distress. She is no longer postictal at this time. Neuro exam within normal limits. Work-up initiated including CBC, CMP, UA, urine , EKG, Accu-Chek, CT head, x- ray left shoulder. 1614 labs and imaging reviewed. CT head and shoulder x-ray showed no acute abnormality. CBC grossly normal. CMP shows decreased potassium 3.2, slightly elevated chloride 109, slightly decreased CO2 18. Magnesium normal. Oral potassium ordered. Urinalysis shows 3+ protein, trace ketones, positive nitrates, 2+ leukocytes, 3+ RBCs, few bacteria. Urine drug screen negative. Urine negative. COVID-negative. Rocephin ordered for UTI. Will discharge with prescription for antibiotic for UTI as well as Keppra. Results discussed with patient and . I instructed them that they need to follow- up with neurology and primary care. I provided the phone numbers for [facility] in [place] for neurology. I also provided [facility] to follow-up for primary care provider. I informed them that patient will need to get further refills from the neurologist or primary care provider and that she will likely need to take these daily from here on out. Instructed her not to drive. Discharge instructions and return precautions provided. (YANY JONES APRN) Initial ECG Impression Date: Mar 20, 2023 Initial ECG Impression Time: 15:08 Initial ECG Rate: 66 Initial ECG Rhythm: Normal Sinus Initial ECG Intervals: Normal Initial ECG Impression: Nonspecific Changes Initial ECG Comparisson: No Previous ECG Available Comment Insignificant Q waves noted in 2, 3, aVF V4, V5, V6. No ST elevation or T wave inversion. (YANY JONES APRN) Diagnostic Imaging Diagonstic Imaging: CT Plain Films/CT/US/NM/MRI: head Comments [facility] [place] [place] NAME: [employer] REC#: [id number] PT STATUS: REG ER : 1980 PHYSICIAN: YANY JONES APRN ADMIT DATE: 03/20/23/ER Signed Date of Exam:03/20/23 CT HEAD WO PROCEDURE: CT head without contrast. TECHNIQUE: Multiple contiguous axial images were obtained through the brain without the use of intravenous contrast. Auto Exposure Controls were utilized during the CT exam to meet ALARA standards for radiation dose reduction. INDICATION: Seizure. COMPARISON: 07/15/2022. CT HEAD: CT images of the head were obtained. FINDINGS: Ventricles and sulci are within normal limits for size. There is no intracranial hemorrhage identified. There is no abnormal mass effect or shift of midline structures. IMPRESSION: Unremarkable CT of the head. Dictated by: Dictated on workstation # [id number] Dict: 03/20/23 1539 Trans: 03/20/239 AS6 [id number] Interpreted by: DARELL BARRIGA MD Electronically signed by: DARELL BARRIGA MD 03/20/23 1719 Diagonstic Imaging: Xray Plain Films/CT/US/NM/MRI: other (Shoulder) Comments [facility] [place] NAME: [employer] REC#: [id number] PT STATUS: REG ER : 1980 PHYSICIAN: YANY JONES APRN ADMIT DATE: 03/20/23/ER Signed Date of Exam:03/20/23 SHOULDER, LEFT, 3 VIEWS INDICATION: Seizure with left shoulder pain. EXAMINATION: AP, oblique and transscapular views of the left shoulder were obtained. FINDINGS: No acute fracture or dislocation is identified. No abnormal lytic or sclerotic focus is seen, and there is no radiopaque foreign body. IMPRESSION: No acute abnormality. Dictated by: Dictated on workstation # [id number] Dict: 03/20/23 1549 Trans: 03/20/231718 [facility] [id number] Interpreted by: DARELL BARRIGA MD Electronically signed by: DARELL BARRIGA MD 03/20/231718 (YANY JONES APRN) Departure Impression Primary Impression: Seizures Additional Impressions: UTI (urinary tract infection) Qualified Codes: N30.01 - Acute cystitis with hematuria Hypokalemia Disposition: HOME, SELF-CARE Condition: Stable Departure-Patient Inst. Decision time for Depature: 16:31 (YANY JONES APRN) Referrals: [facility] Patient Instructions: Seizures, Adult (DC), Urinary Tract Infection, Adult (DC) Add. Discharge Instructions: Do not drive or operate heavy machinery. You need to follow-up with neurology for your seizures. See below for phone numbers to call for appointment. Call them tomorrow to schedule an appointment. Follow-up with [facility] to establish a primary care provider. Call them tomorrow to make a follow-up appointment. Take Keppra twice daily as prescribed. This will need to be refilled by your primary care provider or neurology. You will likely have to take this every day from here on out. Complete full course of antibiotic as directed. Increase potassium in your diet, foods high in potassium include bananas, potatoes, spinach or other green leafy vegetables, avocados. Return for recurrent seizures, difficulty walking or moving your arms or legs, slurred speech, difficulty with normal activities, abnormal behavior, vision changes, or any other new, concerning, or worsening symptoms. [facility] [address] [facility] [address], [place] [address] [facility], [address] [place] [address], [address] [place] [address] All discharge instructions reviewed with patient and/or family. Voiced understanding. Scripts Nitrofurantoin Monohyd/M-Cryst (Macrobid 100 mg Capsule) 100 Mg Capsule 1 TAB PO BID for 5 Days, #10 CAP 0 Refills Prov: YANY JONES APRN 03/20/23 Levetiracetam (Keppra) 500 Mg Tablet 500 MG PO BID for 30 Days, #60 TAB 0 Refills Prov: YANY JONES APRN 03/20/23 Work/School Note: Work Release Form Date Seen in the Emergency Department: Mar 20, 2023 Return to Work: Mar 22, 2023 Restrictions: No Restrictions ATTENDING PHYSICIAN NOTE: I was physically present as attending physician in the emergency department during the care of this patient, but I was not directly involved in the decision making or delivery of care for this patient. (GOYO APONTE MD) Copy Copies To 1: [facility]/YANY ALVAREZ APRN Mar 20, 2023 15:12 GOYO APONTE MD Mar 20, 2023 19:22
[2023-03-20 15:14] LABS: CREATININE SERUM 0.71 MG/DL (0.60-1.30)
[2023-03-20 15:25] LABS: BILIRUBIN,URINE NEGATIVE (NEGATIVE); CLARITY,URINE CLOUDY; COLOR,URINE RED; GLUCOSE, URINE (UA) NEGATIVE (NEGATIVE); KETONES,URINE TRACE (NEGATIVE); LEUKOCYTE ESTERASE ,URINE 2+ (NEGATIVE); NITRITE,URINE POSITIVE (NEGATIVE); PROTEIN,URINE 3+ (NEGATIVE)
--- NOTE | 2023-03-20 15:41 | Diagnostic Imaging Report ---
PROCEDURE: CT head without contrast. TECHNIQUE: Multiple contiguous axial images were obtained through the brain without the use of intravenous contrast. Auto Exposure Controls were utilized during the CT exam to meet ALARA standards for radiation dose reduction. INDICATION: Seizure. COMPARISON: 07/15/2022. CT HEAD: CT images of the head were obtained. FINDINGS: Ventricles and sulci are within normal limits for size. There is no intracranial hemorrhage identified. There is no abnormal mass effect or shift of midline structures. IMPRESSION: Unremarkable CT of the head. Dictated by: Dictated on workstation # [id number]
--- NOTE | 2023-03-20 15:51 | Diagnostic Imaging Report ---
INDICATION: Seizure with left shoulder pain. EXAMINATION: AP, oblique and transscapular views of the left shoulder were obtained. FINDINGS: No acute fracture or dislocation is identified. No abnormal lytic or sclerotic focus is seen, and there is no radiopaque foreign body. IMPRESSION: No acute abnormality. Dictated by: Dictated on workstation # [id number]
[2023-03-20 15:52] LABS: BACTERIA,URINE FEW /HPF; RBC,URINE TNTC /HPF; WBC,URINE 50-100 /HPF
[2023-03-20 16:13] LABS: AMPHETAMINE SCREEN, URINE NEGATIVE (NEGATIVE); BARBITURATE SCREEN URINE NEGATIVE (NEGATIVE); BENZODIAZEPINES SCREEN URINE NEGATIVE (NEGATIVE); CANNABINOID SCREEN, URINE NEGATIVE (NEGATIVE); COCAINE SCREEN URINE NEGATIVE (NEGATIVE); METHADONE STAT NEGATIVE (NEGATIVE); OPIATE SCREEN URINE NEGATIVE (NEGATIVE); OXYCODONE STAT NEGATIVE (NEGATIVE); PROPOXYPHENE STAT NEGATIVE (NEGATIVE); TRICYCLIC ANTIDEPRESSANTS SCRE NEGATIVE (NEGATIVE)
== END ==
LOC: EDUNIT# 14:49 → ER 14:50
DX: G40.909 Epilepsy, unspecified, not intractable, without status epilepticus (principal); N39.0 Urinary tract infection, site not specified; E87.6 Hypokalemia; E87.8 Other disorders of electrolyte and fluid balance, not elsewhere classified; R79.81 Abnormal blood-gas level; M25.512 Pain in left shoulder; Z20.822 Contact with and (suspected) exposure to COVID-19
CPT/HCPCS: 36415; 70450; 73030; 80053; 80306; 81000; 82947; 83735; 84703; 85025; 87088; 87636; 93005; 93041